=== PATIENT | female | born 1995 | race African-American/Black ===

== ENCOUNTER 2018-02-14 21:48 | Inpatient (IN) | payer OTHER ==
[~2018-02-14] VITALS: Ht 157.5 cm; Wt 69.9 kg
--- NOTE | 2018-02-14 22:30 | NUR ---
22 yo female bb mother. patient is alert and oriented, c/o abd pain. patient describes pain as burning like, non radiating 02/23. patient ambulated to er bed, skin warm and dry, resp even and unlabored. patient gowned, placed onc ardiac monitor. awaiting orders from provider
[2018-02-14] MEDS ORDERED: MAG HYDROX/AL HYDROX/SIMETH 30 ML UDC ONE (22:54)
[2018-02-14] MEDS ORDERED: FAMOTIDINE (20 MG) 20 MG TABLET ONE (22:54)
[2018-02-14] MEDS ORDERED: MAG HYDROX/AL HYDROX/SIMETH 30 ML UDC PO ONE (23:00)
[2018-02-14] MEDS ORDERED: FAMOTIDINE (20 MG) 20 MG TABLET PO ONE (23:00)
[2018-02-14 23:27] LABS: BASOPHILS # (AUTO) 0.1 /CMM (0.0-0.2); BASOPHILS % (AUTO) 0.6 % (0.0-2.0); EOSINOPHILS % (AUTO) 1.4 % (0.0-6.0); HEMATOCRIT 37 % (33-45); HEMOGLOBIN 12.2 g/dL (11.5-14.8); LYMPHOCYTES # (AUTO) 2.2 /CMM (0.8-4.8); LYMPHOCYTES % (AUTO) 21.6 % (20.0-44.0); MEAN CORPUSCULAR HEMOGLOBIN 29 PG (26.0-33.0); MEAN CORPUSCULAR HGB CONC 33 g/dl (31.0-36.0); MEAN CORPUSCULAR VOLUME 89 fL (82-100); MONOCYTES % (AUTO) 9.9 % (2.0-12.0); NEUTROPHILS # (AUTO) 6.8 /CMM (1.8-8.9); NEUTROPHILS % (AUTO) 66.5 % (43.0-81.0); PLATELET COUNT (AUTO) 387 /CMM (150-450); RDW COEFFICIENT OF VARIATION 14.3 (11.5-15.0); RED BLOOD CELL COUNT(AUTO) 4.18 MIL/uL (4.0-5.2); WHITE BLOOD COUNT (AUTO) 10.2 K/uL (4.3-11.0)
[2018-02-14 23:41] LABS: APPEARANCE,URINE CLEAR (CLEAR); BILIRUBIN,URINE NEGATIVE (NEGATIVE); BLOOD, URINE NEGATIVE Ery/uL (NEGATIVE); COLOR,URINE YELLOW (YELLOW); KETONES,URINE NEGATIVE (NEGATIVE); LEUKOCYTE ESTERASE ,URINE NEGATIVE (NEGATIVE); NITRITE, URINE NEGATIVE (NEGATIVE); PH,URINE 8.5 (5.0-8.0); PROTEIN,URINE NEGATIVE (NEGATIVE); UGLUCOSE NEGATIVE (NEGATIVE); UROBILINOGEN,URINE 0.2 EU/dL (0.2)
[2018-02-14 23:49] LABS: CALCIUM, SERUM 8.7 mg/dL (8.5-10.1); CREATININE 0.7 mg/dL (0.6-1.3); POTASSIUM 3.5 mmol/L (3.5-5.1)
[2018-02-15 00:02] LABS: ALBUMIN 3.6 g/dL (3.4-5.0); BILIRUBIN,DIRECT 0.1 mg/dL (0.0-0.2); BILIRUBIN,TOTAL 0.4 mg/dL (0.2-1.0); TOTAL PROTEIN, SERUM 7.8 g/dL (6.4-8.2)
[2018-02-15] MEDS ORDERED: ONDANSETRON HCL/PF 4 MG/2 ML VIAL IVP ONE (00:30)
[2018-02-15] MEDS ORDERED: MORPHINE SULFATE INJ 2 MG/ML DISP.SYRIN IV ONE (00:30)
[2018-02-15] MEDS ORDERED: IV NS 0.9% 500 ML BAG IV ONE (00:30)
[2018-02-15] MEDS ORDERED: ONDANSETRON HCL/PF 4 MG/2 ML VIAL ONE (00:31)
[2018-02-15] MEDS ORDERED: MORPHINE SULFATE INJ 4 MG/ML DISP.SYRIN ONE (00:32)
[2018-02-15] MEDS ORDERED: MORPHINE SULFATE INJ 2 MG/ML DISP.SYRIN IV PRN (01:00)
[2018-02-15] MEDS ORDERED: ONDANSETRON HCL/PF 4 MG/2 ML VIAL IVP PRN (01:00)
[2018-02-15] MEDS ORDERED: Z GUARD REMEDY 2 OZ OINT TP PRN (01:00)
[2018-02-15] MEDS ORDERED: ZOLPIDEM TARTRATE 5 MG TABLET PO PRN (01:00)
[2018-02-15] MEDS ORDERED: MAGNESIUM HYDROXIDE 30 ML UDC PO PRN (01:00)
[2018-02-15] MEDS ORDERED: HYDROCODONE/APAP 5/325MG 1 EACH TABLET PO PRN (01:00)
[2018-02-15] MEDS ORDERED: ACETAMINOPHEN 325 MG TABLET PO PRN (01:00)
--- NOTE | 2018-02-15 01:07 | NUR ---
report given to Silviano syed for MENG
--- NOTE | 2018-02-15 01:33 | NUR ---
patient transported to ms bed by EMT without incident
[2018-02-15 01:48] VITALS: BP 114/65
--- NOTE | 2018-02-15 01:48 | NUR ---
MS RN NOTES RECEIVED PT FROM ER, PT ABLE TO WALK AND GET INSIDE THE ROOM SAFELY. PT IS A/O X 4. PT'S MOM AT BEDSIDE. VERBALLY RESPONSIVE. NO DISTRESS, NO SOB NOTED. RESPIRATION IS EVEN AND UNLABORED. IV SITE ON LAC INTACT AND PATENT, NO S/S OF INFILTRATION NOTED. COMPLETE BODY CHECK DONE, RAE IS INTACT. PT ON NPO. PLAN OF CARE DISCUSSED WITH PT'S MOM AND THE PT, VERBALIZED UNDERSTANDING. SAFETY PRECAUTIONS OBSERVED. ALL NEEDS ATTENDED AND MET. KEPT COMFORTABLE. CALL LIGHT WITHIN REACH. WILL CONT TO MONITOR.
[2018-02-15 01:50] VITALS: BP 114/65
[2018-02-15] MEDS: IV NS 0.9% 1,000 ML IV PRN ×2 (01:50→17:37)
[2018-02-15 06:25] LABS: BASOPHILS # (AUTO) 0.1 /CMM (0.0-0.2); BASOPHILS % (AUTO) 0.7 % (0.0-2.0); EOSINOPHILS % (AUTO) 1.6 % (0.0-6.0); HEMATOCRIT 35 % (33-45); HEMOGLOBIN 11.6 g/dL (11.5-14.8); LYMPHOCYTES # (AUTO) 2.2 /CMM (0.8-4.8); LYMPHOCYTES % (AUTO) 25.3 % (20.0-44.0); MEAN CORPUSCULAR HEMOGLOBIN 30 PG (26.0-33.0); MEAN CORPUSCULAR HGB CONC 33 g/dl (31.0-36.0); MEAN CORPUSCULAR VOLUME 89 fL (82-100); MONOCYTES # (AUTO) 0.9 /CMM (0.1-1.30); MONOCYTES % (AUTO) 9.7 % (2.0-12.0); NEUTROPHILS # (AUTO) 5.5 /CMM (1.8-8.9); NEUTROPHILS % (AUTO) 62.7 % (43.0-81.0); PLATELET COUNT (AUTO) 356 /CMM (150-450); RDW COEFFICIENT OF VARIATION 14.8 (11.5-15.0); RED BLOOD CELL COUNT(AUTO) 3.91 MIL/uL (4.0-5.2); WHITE BLOOD COUNT (AUTO) 8.8 K/uL (4.3-11.0)
--- NOTE | 2018-02-15 06:40 | NUR ---
MS RN NOTES PT IN BED, ASLEEP AT THIS TIME, APPEARS COMFORTABLE, AROUSES EASILY, PT IS A/O X 4. VERBALLY RESPONSIVE. NO DISTRESS, NO SOB NOTED. RESPIRATION IS EVEN AND UNLABORED. IV SITE ON LAC INTACT AND PATENT, NO S/S OF INFILTRATION NOTED. PT ON NPO. SAFETY PRECAUTIONS OBSERVED. ALL NEEDS ATTENDED AND MET. KEPT COMFORTABLE. CALL LIGHT WITHIN REACH. WILL ENDORSE TO NEXT SHIFT ACCORDINGLY FOR MENG.
[2018-02-15 07:04] LABS: CALCIUM, SERUM 8.3 mg/dL (8.5-10.1); CREATININE 0.7 mg/dL (0.6-1.3); MAGNESIUM 2.2 mg/dL (1.8-2.4); PHOSPHORUS 4.5 mg/dL (2.5-4.9); POTASSIUM 4.1 mmol/L (3.5-5.1)
[2018-02-15 07:58] VITALS: BP 107/63
--- NOTE | 2018-02-15 08:00 | NUR ---
MS RN AM NOTES PT IS A/O X 4. VERBALLY RESPONSIVE. NO DISTRESS, NO SOB NOTED. RESPIRATION IS EVEN AND UNLABORED. IV SITE ON LAC INTACT AND PATENT WITH NS AT 100 ML/HR INFUSING WELL, NO S/S OF INFILTRATION NOTED. PT ON NPO. SAFETY PRECAUTIONS OBSERVED.KEPT COMFORTABLE. CALL LIGHT WITHIN REACH.
[2018-02-15 13:08] LABS: ALBUMIN 3.1 g/dL (3.4-5.0); BILIRUBIN,TOTAL 0.3 mg/dL (0.2-1.0); TOTAL PROTEIN, SERUM 6.8 g/dL (6.4-8.2)
[2018-02-15 15:44] VITALS: BP 107/64
--- NOTE | 2018-02-15 15:52 | NUR ---
Patient lives at home with family. She is ambulatory and independent with adl's. Her mother is her primary source of support and will provide ride when discharge. Addendum: 02/15/18 at 1552 by CATARINA CHAN RN Amended: Links added.
--- NOTE | 2018-02-15 19:00 | NUR ---
PT RESTING IN BED WITH ABDOMINAL PAIN MED NORCO GIVEN IS WITH EFFECTIVE RESULT.CALL LIGHT PLACED WITHIN REACH.
--- NOTE | 2018-02-15 19:25 | NUR ---
MS RN NOTES RECEIVED PT IN BED, AWAKE, A/O X 4. FAMILY AT BEDSIDE. VERBALLY RESPONSIVE. NO DISTRESS, NO SOB NOTED. RESPIRATION IS EVEN AND UNLABORED. IV SITE ON LAC INTACT AND PATENT, IVF INFUSING WELL. NO S/S OF INFILTRATION NOTED. PT ON SOFT DIET, JOHNNIE WELL. NO C/O PAIN OR DISCOMFORT AT THIS TIME. SAFETY PRECAUTIONS OBSERVED. ALL NEEDS ATTENDED AND MET. KEPT COMFORTABLE. CALL LIGHT WITHIN REACH. WILL CONTINUE TO MONITOR.
[2018-02-15 20:00] VITALS: BP 99/54
[2018-02-16] MEDS: IV NS 0.9% 1,000 ML IV PRN ×2 (00:23→11:59)
--- NOTE | 2018-02-16 06:43 | NUR ---
MS RN NOTES PT IN BED, RESTING COMFORTABLY, AROUSES EASILY. A/O X 4. VERBALLY RESPONSIVE. NO DISTRESS, NO SOB NOTED. RESPIRATION IS EVEN AND UNLABORED. IV SITE ON LAC INTACT AND PATENT, IVF INFUSING WELL. NO S/S OF INFILTRATION NOTED. PT ON SOFT DIET, JOHNNIE WELL. NO C/O PAIN OR DISCOMFORT AT THIS TIME. SAFETY PRECAUTIONS OBSERVED. ALL NEEDS ATTENDED AND MET. KEPT COMFORTABLE. CALL LIGHT WITHIN REACH. WILL ENDORSE TO NEXT SHIFT ACCORDINGLY FOR MENG.
[2018-02-16 08:00] VITALS: BP 120/67
--- NOTE | 2018-02-16 08:00 | NUR ---
MS RN AM NOTES PT IS A/O X 4. VERBALLY RESPONSIVE. NO DISTRESS, NO SOB NOTED. RESPIRATION IS EVEN AND UNLABORED. IV SITE ON LAC INTACT AND PATENT WITH NS AT 150 ML/HR INFUSING WELL, NO S/S OF INFILTRATION NOTED.TOLERATED SOFT DIET.NO C/O NAUSEA OR VOMITING.C/O M,ILD ABDOMINAL PAIN.TYLENOL 650 MG PO GIVEN WITH EFFECTIVE RESULT. KEPT COMFORTABLE. CALL LIGHT WITHIN REACH.
[2018-02-16 08:16] LABS: BASOPHILS # (AUTO) 0.1 /CMM (0.0-0.2); BASOPHILS % (AUTO) 0.9 % (0.0-2.0); EOSINOPHILS % (AUTO) 2.6 % (0.0-6.0); HEMATOCRIT 35 % (33-45); HEMOGLOBIN 11.6 g/dL (11.5-14.8); LYMPHOCYTES # (AUTO) 2.3 /CMM (0.8-4.8); MEAN CORPUSCULAR HEMOGLOBIN 30 PG (26.0-33.0); MEAN CORPUSCULAR HGB CONC 33 g/dl (31.0-36.0); MEAN CORPUSCULAR VOLUME 89 fL (82-100); MONOCYTES # (AUTO) 0.8 /CMM (0.1-1.30); MONOCYTES % (AUTO) 9.5 % (2.0-12.0); NEUTROPHILS # (AUTO) 4.7 /CMM (1.8-8.9); PLATELET COUNT (AUTO) 332 /CMM (150-450); RDW COEFFICIENT OF VARIATION 14.1 (11.5-15.0); WHITE BLOOD COUNT (AUTO) 8.1 K/uL (4.3-11.0)
[2018-02-16 08:37] LABS: CALCIUM, SERUM 8.4 mg/dL (8.5-10.1); CREATININE 0.7 mg/dL (0.6-1.3); POTASSIUM 3.9 mmol/L (3.5-5.1)
[2018-02-16 10:31] LABS: ALBUMIN 3.1 g/dL (3.4-5.0); BILIRUBIN,TOTAL 0.3 mg/dL (0.2-1.0); TOTAL PROTEIN, SERUM 7.1 g/dL (6.4-8.2)
--- NOTE | 2018-02-16 14:00 | NUR ---
DISCHARGED HOME WITH STABLE V/S VIA PRIVATE CAR.INSTRUCTED TO FOLLOW UP WITH PRIMARY DOCTOR AND WITH GI DOCTOR IN ONE WEEK.IV H/L REMOVED LT AC WITH NO S/S OF BLEEDING TOLERATED WELL.
== END 2018-02-16 14:00 | disposition home or self-care (01) | DRG 282 ==
LOC: ER 21:54 → MEDSG2 02-15 00:55
PROVIDERS: ADMIT Nurse Practitioner Acute Care; ATTEND Nurse Practitioner Acute Care
DX: K85.90 Acute pancreatitis without necrosis or infection, unspecified (principal)
CPT/HCPCS: 36415; 76705-TC; 80048-TC; 80061-TC; 80076-TC; 81000-TC; 83690-TC; 83735-TC; 84100-TC; 84703-TC; 85025-TC; 87081-TC; A4606; J2270; J2405; J7030; Z7610

== ENCOUNTER → 2019-05-30 | Emergency (ER) | payer OTHER ==
--- NOTE | 2019-05-30 21:22 | NUR ---
CALLED PATIENT IN WAITING ROOM. NO RESPONSE.
--- NOTE | 2019-05-30 22:00 | NUR ---
CALLED PATIENT IN WAITING ROOM. NO RESPONSE.
--- NOTE | 2019-05-30 22:34 | NUR ---
CALLED PATIENT IN WAITING ROOM. NO RESPONSE.
== END | disposition left against medical advice (07) ==
LOC: ER 20:26
DX: Z53.21 Procedure and treatment not carried out due to patient leaving prior to being seen by health care provider (principal)